=== PATIENT | male | born 1960 | race Caucasian/White ===

== ENCOUNTER 2021-12-20 19:33 | Inpatient (IN) | payer BC, OTHER ==
[2021-12-20 20:13] VITALS: BMI 17.8
[2021-12-20] MEDS ORDERED: MAGNESIUM HYDROX 2400MG/30ML ORAL SUSPENSION 30 ML CUP PO PRN (22:28)
[2021-12-20] MEDS ORDERED: MAGNESIUM CITRATE 300 ML BOTTLE PO PRN (22:28)
[2021-12-20] MEDS ORDERED: MAG HYDROX/AL HYDROX/SIMETH 30 ML UNIT-DOSE CUP PO PRN (22:28)
[2021-12-20] MEDS ORDERED: NICOTINE POLACRILEX 2 MG GUM BC PRN (22:28)
[2021-12-20] MEDS ORDERED: IBUPROFEN 400 MG TABLET (FP) PO PRN (22:28)
[2021-12-20] MEDS ORDERED: LOPERAMIDE HCL 2 MG CAPSULE PO PRN (22:28)
[2021-12-20] MEDS ORDERED: hydrOXYzine PAMOATE 25 MG CAPSULE (FP) PO PRN (22:28)
[2021-12-20] MEDS ORDERED: ACETAMINOPHEN 325 MG TABLET (FP) PO PRN (22:28)
[2021-12-20] MEDS ORDERED: guaiFENesin 200 MG/10 ML 10 ML UNIT-DOSE CUPS PO PRN (22:28)
[2021-12-21] MEDS: MELATONIN 5 MG TABLETS PO SCH ×2 (06:24→21:28)
[2021-12-21] MEDS: PRENATAL VITAMINS W/ FOLIC ACID TABLET (FP) PO SCH (09:59)
[2021-12-21] MEDS: NICOTINE 14 MG/24 HOURS TOPICAL PATCH TD SCH (10:00)
[2021-12-21 11:21] LABS: HEMATOCRIT 38.1 % (35.4-49); HEMOGLOBIN 12.3 GM/dL (11.7-16.9); MCH 30.8 pg (25.7-33.7); MCHC 32.4 g/dl (32.0-35.9); MEAN PLT VOLUME 8.3 fl (7.5-11.1); PH,URINE 7.5 (5.0-8.0); PLATELET COUNT 387 10^3/uL (134-434); RBC 4.01 M/mm3 (4.00-5.60); RDW 14.8 % (11.9-15.9); URINE APPEARANCE CLEAR; URINE BILIRUBIN NEGATIVE (NEGATIVE); URINE COLOR YELLOW; URINE GLUCOSE (UA) NEGATIVE (NEGATIVE); URINE KETONE NEGATIVE (NEGATIVE); URINE LEUK ESTERASE NEGATIVE (NEGATIVE); URINE NITRITE NEGATIVE (NEGATIVE); URINE PROTEIN NEGATIVE (NEGATIVE); URINE UROBILINOGEN 0.2 mg/dL (0.2-1.0); WHITE BLOOD COUNT 4.4 K/mm3 (4.0-10.0)
[2021-12-21 11:55] LABS: ALBUMIN 2.7 g/dl (3.4-5.0); CALCIUM 8.5 mg/dL (8.5-10.1)
[2021-12-21 11:56] LABS: BLOOD UREA NITROGEN 16.2 mg/dL (7-18)
[2021-12-21 11:59] LABS: BILIRUBIN,TOTAL 0.2 mg/dL (0.2-1); TOT PROT 5.7 g/dl (6.4-8.2)
[2021-12-21 12:05] LABS: SYPHILIS W/ RPR CONF NON-REACTIVE (NONREACTIVE)
[2021-12-21] MEDS: MINERAL OIL/PETROLAT/WATER TOPICAL CREAM 113 GM JAR TP SCH ×2 (18:50→22:08)
[2021-12-21] MEDS: THIAMINE HCL 100 MG TABLET (FP) PO SCH (21:28)
[2021-12-22] MEDS ORDERED: TUBERCULIN PPD 5 TU/0.1ML VIAL ID ONE ×2 (06:13→06:47)
[2021-12-22] MEDS: MINERAL OIL/PETROLAT/WATER TOPICAL CREAM 113 GM JAR TP SCH ×4 (09:51→23:29)
[2021-12-22] MEDS: PRENATAL VITAMINS W/ FOLIC ACID TABLET (FP) PO SCH (09:52)
[2021-12-22] MEDS: NICOTINE 14 MG/24 HOURS TOPICAL PATCH TD SCH (09:52)
[2021-12-22] MEDS: AMMONIUM LACTATE 12% LOTION 225 GM BOTTLE TP SCH (09:53)
[2021-12-22] MEDS: SALICYLIC ACID 1 APPLIC BOTTLE TP SCH ×2 (14:40→22:15)
[2021-12-22] MEDS: ALBUTEROL SO4 HFA INHALER IH PRN (21:27)
[2021-12-22] MEDS: MELATONIN 5 MG TABLETS PO SCH (21:28)
[2021-12-22] MEDS: THIAMINE HCL 100 MG TABLET (FP) PO SCH (21:28)
[2021-12-23] MEDS: AMMONIUM LACTATE 12% LOTION 225 GM BOTTLE TP SCH ×2 (09:59→15:56)
[2021-12-23] MEDS: SALICYLIC ACID 1 APPLIC BOTTLE TP SCH ×2 (10:00→22:10)
[2021-12-23] MEDS: NICOTINE 14 MG/24 HOURS TOPICAL PATCH TD SCH (10:00)
[2021-12-23] MEDS: PRENATAL VITAMINS W/ FOLIC ACID TABLET (FP) PO SCH (10:00)
[2021-12-23] MEDS: MINERAL OIL/PETROLAT/WATER TOPICAL CREAM 113 GM JAR TP SCH ×4 (10:01→22:10)
[2021-12-23 14:08] LABS: SARS-CoV-2 NAA Not Detected (Not Detected)
[2021-12-23] MEDS: ALBUTEROL SO4 HFA INHALER IH PRN (17:36)
[2021-12-23] MEDS: MELATONIN 5 MG TABLETS PO SCH (22:10)
[2021-12-23] MEDS: THIAMINE HCL 100 MG TABLET (FP) PO SCH (23:08)
[2021-12-24] MEDS: PRENATAL VITAMINS W/ FOLIC ACID TABLET (FP) PO SCH (09:57)
[2021-12-24] MEDS: AMMONIUM LACTATE 12% LOTION 225 GM BOTTLE TP SCH (09:57)
[2021-12-24] MEDS: NICOTINE 14 MG/24 HOURS TOPICAL PATCH TD SCH (09:58)
[2021-12-24] MEDS: SALICYLIC ACID 1 APPLIC BOTTLE TP SCH ×2 (09:58→22:16)
[2021-12-24] MEDS: MINERAL OIL/PETROLAT/WATER TOPICAL CREAM 113 GM JAR TP SCH ×2 (09:59→14:30)
[2021-12-24] MEDS ORDERED: NEOMYCIN/BACI/POLY/HC TOPICAL OINT 15 GM TUBE TP SCH (12:00)
[2021-12-24] MEDS ORDERED: NEOMY SULF/BACITRA/POLYMYXIN B OPHTHALMIC OINTMENT 3.5 GM OS ONE (12:09)
[2021-12-24] MEDS: ALBUTEROL SO4 HFA INHALER IH PRN (12:45)
[2021-12-24] MEDS ORDERED: BACITRACIN/POLYMYXIN OPH OINT 3.5 GM TUBE OS SCH (14:00)
[2021-12-24] MEDS ORDERED: MINERAL OIL/PETROLAT/WATER TOPICAL CREAM 113 GM JAR TP PRN (14:22)
[2021-12-24] MEDS: MELATONIN 5 MG TABLETS PO SCH (22:16)
[2021-12-24] MEDS: NEOMY SULF/BACITRA/POLYMYXIN B OPHTHALMIC OINTMENT 3.5 GM OS SCH (22:17)
[2021-12-24] MEDS: THIAMINE HCL 100 MG TABLET (FP) PO SCH (22:17)
[2021-12-25] MEDS: NEOMY SULF/BACITRA/POLYMYXIN B OPHTHALMIC OINTMENT 3.5 GM OS SCH ×3 (06:26→21:43)
[2021-12-25] MEDS: PRENATAL VITAMINS W/ FOLIC ACID TABLET (FP) PO SCH (10:14)
[2021-12-25] MEDS: SALICYLIC ACID 1 APPLIC BOTTLE TP SCH ×2 (10:14→21:43)
[2021-12-25] MEDS: NICOTINE 14 MG/24 HOURS TOPICAL PATCH TD SCH (10:14)
[2021-12-25] MEDS: AMMONIUM LACTATE 12% LOTION 225 GM BOTTLE TP SCH (10:14)
[2021-12-25] MEDS: THIAMINE HCL 100 MG TABLET (FP) PO SCH (21:43)
[2021-12-25] MEDS: MELATONIN 5 MG TABLETS PO SCH (21:43)
[2021-12-26] MEDS: NEOMY SULF/BACITRA/POLYMYXIN B OPHTHALMIC OINTMENT 3.5 GM OS SCH ×3 (07:19→21:30)
[2021-12-26] MEDS: NICOTINE 14 MG/24 HOURS TOPICAL PATCH TD SCH (10:03)
[2021-12-26] MEDS: AMMONIUM LACTATE 12% LOTION 225 GM BOTTLE TP SCH (10:03)
[2021-12-26] MEDS: SALICYLIC ACID 1 APPLIC BOTTLE TP SCH ×3 (10:03→21:28)
[2021-12-26] MEDS: PRENATAL VITAMINS W/ FOLIC ACID TABLET (FP) PO SCH ×2 (10:03→10:20)
[2021-12-26] MEDS: THIAMINE HCL 100 MG TABLET (FP) PO SCH (21:29)
[2021-12-26] MEDS: MELATONIN 5 MG TABLETS PO SCH (21:29)
[2021-12-27] MEDS: NEOMY SULF/BACITRA/POLYMYXIN B OPHTHALMIC OINTMENT 3.5 GM OS SCH ×3 (06:34→21:29)
[2021-12-27] MEDS: AMMONIUM LACTATE 12% LOTION 225 GM BOTTLE TP SCH (10:45)
[2021-12-27] MEDS: NICOTINE 14 MG/24 HOURS TOPICAL PATCH TD SCH (10:45)
[2021-12-27] MEDS: PRENATAL VITAMINS W/ FOLIC ACID TABLET (FP) PO SCH (10:45)
[2021-12-27] MEDS: SALICYLIC ACID 1 APPLIC BOTTLE TP SCH ×2 (10:45→22:15)
[2021-12-27] MEDS: MELATONIN 5 MG TABLETS PO SCH (21:26)
[2021-12-27] MEDS: THIAMINE HCL 100 MG TABLET (FP) PO SCH (21:26)
[2021-12-28] MEDS: NEOMY SULF/BACITRA/POLYMYXIN B OPHTHALMIC OINTMENT 3.5 GM OS SCH ×3 (06:53→21:48)
[2021-12-28] MEDS: PRENATAL VITAMINS W/ FOLIC ACID TABLET (FP) PO SCH (09:36)
[2021-12-28] MEDS: AMMONIUM LACTATE 12% LOTION 225 GM BOTTLE TP SCH (09:38)
[2021-12-28] MEDS: SALICYLIC ACID 1 APPLIC BOTTLE TP SCH ×2 (09:38→21:47)
[2021-12-28] MEDS: NICOTINE 14 MG/24 HOURS TOPICAL PATCH TD SCH (09:38)
[2021-12-28] MEDS: THIAMINE HCL 100 MG TABLET (FP) PO SCH (21:20)
[2021-12-28] MEDS: MELATONIN 5 MG TABLETS PO SCH (21:20)
[2021-12-29] MEDS: NEOMY SULF/BACITRA/POLYMYXIN B OPHTHALMIC OINTMENT 3.5 GM OS SCH ×2 (07:06→13:35)
[2021-12-29] MEDS: ALBUTEROL SO4 HFA INHALER IH PRN (09:54)
[2021-12-29] MEDS: AMMONIUM LACTATE 12% LOTION 225 GM BOTTLE TP SCH (09:55)
[2021-12-29] MEDS: NICOTINE 14 MG/24 HOURS TOPICAL PATCH TD SCH (09:55)
[2021-12-29] MEDS: PRENATAL VITAMINS W/ FOLIC ACID TABLET (FP) PO SCH (09:55)
[2021-12-29] MEDS: SALICYLIC ACID 1 APPLIC BOTTLE TP SCH ×2 (09:55→23:43)
[2021-12-29] MEDS: THIAMINE HCL 100 MG TABLET (FP) PO SCH (23:44)
[2021-12-29] MEDS: MELATONIN 5 MG TABLETS PO SCH (23:44)
[2021-12-30] MEDS: PRENATAL VITAMINS W/ FOLIC ACID TABLET (FP) PO SCH (09:47)
[2021-12-30] MEDS: SALICYLIC ACID 1 APPLIC BOTTLE TP SCH ×2 (09:48→21:57)
[2021-12-30] MEDS: AMMONIUM LACTATE 12% LOTION 225 GM BOTTLE TP SCH (09:48)
[2021-12-30] MEDS: NICOTINE 14 MG/24 HOURS TOPICAL PATCH TD SCH (09:48)
[2021-12-30] MEDS: P-EPHED 60MG/TRIPROLIDI 2.5MG TABLET PO PRN (19:31)
[2021-12-30] MEDS: THIAMINE HCL 100 MG TABLET (FP) PO SCH (21:57)
[2021-12-30] MEDS: MELATONIN 5 MG TABLETS PO SCH (21:57)
[2021-12-31] MEDS: PRENATAL VITAMINS W/ FOLIC ACID TABLET (FP) PO SCH (09:37)
[2021-12-31] MEDS: SALICYLIC ACID 1 APPLIC BOTTLE TP SCH ×2 (09:37→21:26)
[2021-12-31] MEDS: NICOTINE 14 MG/24 HOURS TOPICAL PATCH TD SCH (09:38)
[2021-12-31] MEDS: AMMONIUM LACTATE 12% LOTION 225 GM BOTTLE TP SCH (09:38)
[2021-12-31] MEDS: P-EPHED 60MG/TRIPROLIDI 2.5MG TABLET PO PRN ×2 (09:41→21:53)
[2021-12-31] MEDS: THIAMINE HCL 100 MG TABLET (FP) PO SCH (21:26)
[2021-12-31] MEDS: MELATONIN 5 MG TABLETS PO SCH (21:26)
[2022-01-01] MEDS: AMMONIUM LACTATE 12% LOTION 225 GM BOTTLE TP SCH (10:20)
[2022-01-01] MEDS: PRENATAL VITAMINS W/ FOLIC ACID TABLET (FP) PO SCH (10:20)
[2022-01-01] MEDS: SALICYLIC ACID 1 APPLIC BOTTLE TP SCH ×2 (10:20→21:33)
[2022-01-01] MEDS: NICOTINE 14 MG/24 HOURS TOPICAL PATCH TD SCH (10:20)
[2022-01-01] MEDS: ALBUTEROL SO4 HFA INHALER IH PRN (19:20)
[2022-01-01] MEDS: THIAMINE HCL 100 MG TABLET (FP) PO SCH (21:33)
[2022-01-01] MEDS: MELATONIN 5 MG TABLETS PO SCH (21:33)
[2022-01-02] MEDS: NICOTINE 14 MG/24 HOURS TOPICAL PATCH TD SCH (09:51)
[2022-01-02] MEDS: PRENATAL VITAMINS W/ FOLIC ACID TABLET (FP) PO SCH (09:51)
[2022-01-02] MEDS: AMMONIUM LACTATE 12% LOTION 225 GM BOTTLE TP SCH (09:51)
[2022-01-02] MEDS: SALICYLIC ACID 1 APPLIC BOTTLE TP SCH ×2 (09:52→21:19)
[2022-01-02] MEDS: ALBUTEROL SO4 HFA INHALER IH PRN (14:00)
[2022-01-02] MEDS: THIAMINE HCL 100 MG TABLET (FP) PO SCH (21:19)
[2022-01-02] MEDS: MELATONIN 5 MG TABLETS PO SCH (21:19)
[2022-01-03 07:04] VITALS: BP 127/83; PULSE 65; TEMP 96.9
== END 2022-01-03 08:50 | disposition home or self-care (01) | DRG 772 ==
LOC: YASAS 19:33 → Y3E 12-21 03:21
PROVIDERS: ADMIT Allergy & Immunology; ATTEND Allergy & Immunology
PROC: HZ42ZZZ Group Counseling for Substance Abuse Treatment, Cognitive-Behavioral (ICD-10-PCS; principal; 2021-12-21)
DX: F14.20 Cocaine dependence, uncomplicated (principal); F16.20 Hallucinogen dependence, uncomplicated; F10.20 Alcohol dependence, uncomplicated; F17.210 Nicotine dependence, cigarettes, uncomplicated; F41.9 Anxiety disorder, unspecified; J45.20 Mild intermittent asthma, uncomplicated; H00.014 Hordeolum externum left upper eyelid; Z18.89 Other specified retained foreign body fragments; Z59.00 Homelessness unspecified
CPT/HCPCS: 36415; 80053; 81003; 85027; 86780; 86803; 93005; 93010; C9803-CS; U0003; U0005